=== PATIENT | male | born 1950 | race American Indian/Alaskan Native ===

== ENCOUNTER 2018-10-05 06:38 | Day surgery (SDC) | payer MEDICARE ==
[2018-10-05] MEDS ORDERED: DIPRIVAN 10 MG/ML IV ONE ×3 (07:16)
[2018-10-05] MEDS ORDERED: WATER FOR IRRIG STERILE IR ONE (07:21)
[2018-10-05] MEDS ORDERED: WATER FOR IRRIG STERILE ONE (07:21)
--- NOTE | 2018-10-05 07:33 | Anesthesia Day of Surgery ---
Anesthesia Day of Surgery - Day of Surgery Patient Examined: Yes Patient H&P Reviewed: Yes Patient is NPO: Yes
--- NOTE | 2018-10-05 07:33 | Anesthesia Consultation ---
Anesthesia Consult and Med Hx Date of service: 10/05/18 - Airway Anesthetic Teeth Evaluation: Poor, Dentures, Partials ROM Head & Neck: Adequate Mental/Hyoid Distance: Adequate Mallampati Class: Class II Intubation Access Assessment: Probably Good - Pre-Operative Health Status ASA Pre-Surgery Classification: ASA2 Proposed Anesthetic Plan: MAC - Pulmonary Hx Smoking: Yes
[2018-10-05] MEDS ORDERED: ROBINUL ONE (08:00)
[2018-10-05] MEDS ORDERED: NACL 0.9% 1000 ML 1,000 ML IV SCH (08:00)
--- NOTE | 2018-10-05 08:58 | Procedure Note ---
Date of procedure: 10/05/18 Pre-op diagnosis: Abdominal Pain/ Colon Polyp Screening/ F/H/ O Cancer Post-op diagnosis: other (Moderate, Distal Erosive Esophagitis/ Small Hiatal Hernia/Gastric Erosion/ Gastritis/ Multiple Colon Polyps (Two in the Ascending colon and one in the Rectum)/ Minor Internal Hemorrhoid/ No Diverticular Disease noted) Procedure: EGD with Biopsy and Colonoscopy with Snare Polypectomy and Cold Biopsy [place] [facility] [place] [facility] [place]geon: VERNON GARCIA Estimated blood loss: minimal Pathology: list Specimen disposition: to lab Condition: stable Disposition: same day (Avoid aspirin and NSAID for 5 days. Treat with PPI and have patient follow up in 1 to 2 weeks ([phone]).)
--- NOTE | 2018-10-05 09:07 | Post Anesthesia Evaluation ---
- Post Anesthesia Evaluation Patient Participated: Yes (sleeping) Airway Patent: Yes Stable Respiratory Function: Yes Nausea/Vomiting: No Temp > 96.8F: Yes Pain Manageable: Yes Adequeate Hydration: Yes Anesthesia Complications: No Block Receding Appropriately: Not Applicable Patient on Ventilator: No
--- NOTE | 2018-10-05 09:12 | Operative Report ---
PROCEDURE: Colonoscopy with snare polypectomy and cold biopsy. INDICATIONS: This is a 67-year-old -[place] gentleman with a strong family history of cancer. EGD was done because of abdominal pain. EGD showed presence of moderate distal erosive esophagitis, gastric erosion, gastritis, small hiatal hernia. No peptic ulcer disease. Colonoscopy was done as part of colon polyp screening and because of the strong family history of cancer. DESCRIPTION OF PROCEDURE: Procedure was done after getting informed consent with MAC anesthesia. Initial rectal exam was unremarkable. Instrument was passed through the rectum onto the cecum, which was identified with ileocecal valve and appendiceal orifice. Visualization was fair to good. In the proximal ascending colon, there was a small polyp noted that was removed by cold biopsy. Photodocumentation was obtained. That is slightly distal to it. There was a larger polyp. The small polyp was probably about 8 mm in diameter. The larger polyp was probably 11 mm in diameter, which was removed by snare excision and remnant of it. To the remnant of it the tip of the snare polypectomy snare was applied and it was removed, remnant was removed also with cold biopsy. The remaining part of the ascending colon, transverse colon, descending colon, and sigmoid showed normal mucosa. There was no additional evidence of any polyps, colitis, or diverticular disease. In the rectum, in the distal portion had a small polyp, possibly hyperplastic that was removed by cold biopsy. There was minimal bleeding from the biopsy sites and no complications associated with the procedure. The rectum also on retroverted view showed some minor internal hemorrhoids. ASSESSMENT: 1. Colon polyp screening, family history of cancer. 2. Colon polyps noted in the ascending colon, one removed by snare polypectomy, one by cold biopsy and one colon polyp in the rectum that was removed by cold biopsy, possibly hyperplastic in type and minor internal hemorrhoids. Plan is to have the patient avoid aspirin and aspirin-related products for the next few days. Follow up in the office in 1-2 weeks' time. Again, there were no complications associated with the procedure and minimal bleeding associated with the procedure. RN, Ifeoma Oreilly was in the room throughout the entirety of the procedure. JOB# [id number] NATHALY/DEMI
--- NOTE | 2018-10-05 09:14 | Operative Report ---
PROCEDURE: Esophagogastroduodenoscopy with biopsy. INDICATIONS: This is a 67-year-old white male who has been having some abdominal pain. He also has a strong family history of cancer. EGD was done to make sure that there was not any significant upper GI pathology present. DESCRIPTION OF PROCEDURE: Procedure was done after getting informed consent with MAC anesthesia. Instrument was passed through the hypopharynx into the esophagus, which showed some moderate distal erosive esophagitis. Biopsy was done from the distal esophagus. Stomach showed a small hiatal hernia and antral erosions. No ulcers were noted in the straight or the retroverted view. The pylorus was patent. The duodenum in the first and second portion appeared normal. Biopsy was done from the gastric antrum, angularis incisura, and gastric body to rule out for H. pylori and atrophic gastritis. There was minimal bleeding from the biopsy sites. No complications associated with the procedure. ASSESSMENT: Abdominal pain, no peptic ulcer disease noted, small hiatal hernia, moderate distal erosive esophagitis, gastric erosion, gastritis. PLAN: Plan is to treat the patient with PPI, have the patient follow up in the office in 1-2 weeks' time and have the patient avoid aspirin and aspirin-related products for the next 5 days. Again, there was minimal bleeding from the biopsy sites, no complications associated with the procedure, and RN, Ifeoma Oreilly was in the room throughout the entirety of the procedure. JOB# [id number] NATHALY/DEMI
[2018-10-07 11:33] VITALS: BP 112/75
== END 2018-10-05 06:39 | disposition home or self-care (01) ==
LOC: GIO 06:38
DX: K29.50 Unspecified chronic gastritis without bleeding (principal); D12.4 Benign neoplasm of descending colon; D12.2 Benign neoplasm of ascending colon; K62.1 Rectal polyp; K20.9 Esophagitis, unspecified; K44.9 Diaphragmatic hernia without obstruction or gangrene; E78.00 Pure hypercholesterolemia, unspecified; Z87.891 Personal history of nicotine dependence; Z79.899 Other long term (current) drug therapy; Z80.0 Family history of malignant neoplasm of digestive organs
CPT/HCPCS: 43239; 45380; 45385; 88305; 88342; J2704; J7030

== ENCOUNTER 2019-09-11 11:57 | Outpatient (CLI) | payer MEDICARE ==
--- NOTE | 2019-09-11 14:36 | XRay Report ---
CHEST 2 VIEWS INDICATION: COUGH R05. COMPARISON: None FINDINGS: Support devices: None. Heart: Within normal limits. Lungs/pleura: No acute air space or interstitial disease. No pneumothorax. Additional findings: None. IMPRESSION: Normal chest x-ray. Signer Name: Lane Henning Jr, MD Signed: 09/11/2019 2:32 PM Workstation Name: [id number]
== END 2019-09-11 11:58 | disposition home or self-care (01) ==
LOC: SPVIMAG 11:57
PROVIDERS: ATTEND Internal Medicine
DX: R05 Cough (principal)
CPT/HCPCS: 71046

== ENCOUNTER 2020-06-17 09:12 | Outpatient (CLI) | payer MEDICARE ==
--- NOTE | 2020-06-18 15:50 | XRay Report ---
LEFT SHOULDER 3 VIEWS INDICATION / CLINICAL INFORMATION: PAIN IN LEFT SHOULDER M25.512 COMPARISON: None available. FINDINGS: BONES and JOINT(S): No acute fracture or subluxation. No significant arthritis. SOFT TISSUES: No significant abnormality. ADDITIONAL FINDINGS: None. IMPRESSION: No significant abnormality of the left shoulder. Signer Name: Hank Cormier MD Signed: 06/17/2020 9:51 AM Workstation Name: [id number]
== END 2020-06-17 09:13 | disposition home or self-care (01) ==
LOC: SPVIMAG 09:12
PROVIDERS: ATTEND Internal Medicine
DX: M25.512 Pain in left shoulder (principal)